=== PATIENT | male | born 1950 | race Caucasian/White ===

== ENCOUNTER 2023-06-22 23:02 | Inpatient (IN) | payer BC, MEDICARE ==
[~2023-06-22] VITALS: Ht 182.9 cm; Wt 105.5 kg
[2023-06-22 23:37] LABS: VENOUS BASE EXCESS -1.8 (-2.0-2.0); VENOUS HCO3 23.1 MMOL/L (23.0-27.0); VENOUS O2 SATURATION 93.1 % (60.0-80.0); VENOUS PARTIAL PRESSURE CO2 40.3 mmHg (38.0-50.0); VENOUS PARTIAL PRESSURE O2 64.4 mmHg (30.0-50.0); VENOUS PH 7.377 UNITS (7.330-7.430); VENOUS STANDARD HCO3 22.8 MMOL/L; VENOUS TOTAL CO2 24.4 MMOL/L (24.0-28.0)
[2023-06-22 23:41] LABS: BASO # 0.1 10^3/uL (0.0-0.2); BASO % 0.3 % (0.0-1.0); EOS # 0.4 10^3/uL (0.0-0.5); EOS % 2.3 % (0.0-3.0); HEMOGLOBIN 15.4 g/dl (13.5-17.5); LYMPH # 1.2 10^3/uL (1.5-5.0); LYMPH % 6.6 % (24.0-44.0); MEAN CORPUSCULAR HEMOGLOBIN 30.6 pg (27.0-33.0); MEAN CORPUSCULAR HGB CONC 32.8 g/dl (32.0-36.5); MEAN CORPUSCULAR VOLUME 93.4 fl (80.0-96.0); MONO % 10.2 % (2.0-8.0); NEUTROPHILS # 14.7 10^3/uL (1.5-8.5); NEUTROPHILS % 79.9 % (36.0-66.0); PLATELET COUNT, AUTOMATED 203 10^3/uL (150-450); RED BLOOD COUNT 5.03 10^6/uL (4.30-6.10); WHITE BLOOD COUNT 18.4 10^3/uL (4.0-10.0)
[2023-06-22 23:58] LABS: BLOOD UREA NITROGEN 12 MG/DL (9-23); CALCIUM LEVEL 8.6 MG/DL (8.3-10.6); CARBON DIOXIDE LEVEL 24 MMOL/L (20-31); CHLORIDE LEVEL 107 MMOL/L (98-107); CREATININE FOR GFR 0.76 MG/DL (0.70-1.30); GLOMERULAR FILTRATION RATE > 60.0 (>42); GLUCOSE, FASTING 108 MG/DL (74-106); POTASSIUM SERUM 4.1 MMOL/L (3.5-5.1); SODIUM LEVEL 140 MMOL/L (136-145)
[2023-06-23 00:19] LABS: MONO # 1.9 10^3/uL (0.0-0.8); RSV AMPLIFICATION NEGATIVE (NEGATIVE)
[2023-06-23] MEDS ORDERED: LORazepam 2 MG TAB PO PRN ×2 (01:10→03:10)
[2023-06-23] MEDS ORDERED: methylPREDNISolone 125MG 2ML VIAL IV ONE (02:00)
[2023-06-23 02:02] LABS: CK-MB VALUE MASS 2.3 NG/ML (<3.6)
[2023-06-23 02:03] LABS: CPK CREATINE PHOSPHOKINASE 155 U/L (46-171); MB/CK RELATIVE INDEX 1.48 (< OR =4)
[2023-06-23] MEDS ORDERED: methylPREDNISolone 125MG 2ML VIAL As Ordered ONE (02:09)
[2023-06-23] MEDS: IPRATROPIUM 0.5MG/ALBUTEROL 2.5MG INH SOL UD 3ML (DUONEB) NEB PRN ×3 (02:20→02:22)
[2023-06-23] MEDS ORDERED: AZITHROMYCIN INJ 500 MG, VIAL MATE ADAPTER 1 EACH in NS 250 ML IV SCH ×2 (02:35→04:00)
[2023-06-23 02:36] LABS: CK-MB VALUE MASS 2.1 NG/ML (<3.6)
[2023-06-23 02:38] LABS: MB/CK RELATIVE INDEX 1.54 (< OR =4)
[2023-06-23] MEDS ORDERED: cefTRIAXone SOD 1 GM in D5W MINI-BAG PLUS 50 ML IV ONE (02:45)
[2023-06-23] MEDS ORDERED: THIAMINE 200MG 2ML VIAL IM ONE (03:10)
[2023-06-23] MEDS ORDERED: ALBUTEROL SULFATE 2.5MG/0.5ML INH NEB SOLN NEB PRN (03:10)
[2023-06-23] MEDS ORDERED: ACETAMINOPHEN TAB 650MG DOSE (2X325MG) PO PRN (03:10)
[2023-06-23] MEDS ORDERED: ONDANSETRON 4MG 2ML VIAL IV PRN (03:10)
[2023-06-23] MEDS ORDERED: SODIUM CHLORIDE 0.9% 1000ML IV SCH (03:10)
[2023-06-23 03:18] LABS: ABG pH (ARTERIAL) 7.408 UNITS (7.350-7.450)
[2023-06-23 03:19] LABS: ABG BASE EXCESS -2.2 (-2.0-2.0); ABG HCO3 21.8 MMOL/L (22.0-26.0); ABG PARTIAL PRESSURE CO2 35.3 mmHg (35.0-45.0); ABG PARTIAL PRESSURE O2 86.5 mmHg (75.0-100.0); ABG STANDARD HCO3 22.7 MMOL/L. (22.0-26.0); ABG TOTAL CO2 22.9 MMOL/L (23.0-31.0)
[2023-06-23] MEDS: NS 1,000 ML IV SCH ×2 (03:52→15:14)
[2023-06-23] MEDS ORDERED: rOPINIRole 0.25 MG TAB(REQUIP) PO ONE (04:05)
[2023-06-23 04:45] VITALS: BP 139/65; TEMP 98.2; O2SAT 92
[2023-06-23] MEDS ORDERED: ZOLP10TA2 PO (05:39)
[2023-06-23] MEDS ORDERED: TRAM50TA2 PO (05:39)
[2023-06-23] MEDS ORDERED: LISI20TA33 PO (05:39)
[2023-06-23] MEDS ORDERED: ALBU8.5H PO (05:39)
[2023-06-23] MEDS ORDERED: TREL1AER PO (05:39)
[2023-06-23] MEDS ORDERED: ATOR40TA75 PO (05:39)
[2023-06-23] MEDS ORDERED: HOME MED LIST COMPLETE! XX SCH (05:40)
[2023-06-23] MEDS: HEPARIN SOD (PORCINE) 5000UNITS/ML 1ML VIAL/SYRINGE SC SCH ×3 (05:53→22:07)
[2023-06-23 07:07] LABS: BLOOD UREA NITROGEN 10 MG/DL (9-23); CARBON DIOXIDE LEVEL 22 MMOL/L (20-31); CHLORIDE LEVEL 108 MMOL/L (98-107); CREATININE FOR GFR 0.66 MG/DL (0.70-1.30); GLOMERULAR FILTRATION RATE > 60.0 (>42); GLUCOSE, FASTING 195 MG/DL (74-106); MAGNESIUM LEVEL 1.6 MG/DL (1.8-2.4); POTASSIUM SERUM 3.7 MMOL/L (3.5-5.1); SODIUM LEVEL 141 MMOL/L (136-145)
[2023-06-23 07:24] VITALS: BP 150/71; TEMP 97.2; O2SAT 96
[2023-06-23] MEDS: IPRATROPIUM 0.5MG/ALBUTEROL 2.5MG INH SOL UD 3ML (DUONEB) NEB SCH ×3 (07:59→19:37)
[2023-06-23] MEDS ORDERED: MULTIVITAMINS/MINERALS THERAP 1 TAB PO SCH (09:00)
[2023-06-23] MEDS: MIRALAX *UNIT DOSE* 17GM PACKET PO SCH (09:00)
[2023-06-23] MEDS ORDERED: FOLIC ACID 1MG TAB PO SCH (09:00)
[2023-06-23] MEDS ORDERED: THIAMINE 100 MG TAB PO SCH (09:00)
[2023-06-23] MEDS: SENOKOT S TAB PO SCH ×2 (09:00→20:14)
[2023-06-23 09:02] LABS: PROCALCITONIN 0.09 ng/ml
[2023-06-23] MEDS: methylPREDNISolone 40MG 1ML VIAL IV SCH ×3 (09:31→20:14)
[2023-06-23 11:59] LABS: BASO % 0.2 % (0.0-1.0); HEMATOCRIT 45.2 % (42.0-52.0); HEMOGLOBIN 14.7 g/dl (13.5-17.5); LYMPH # 0.5 10^3/uL (1.5-5.0); LYMPH % 2.8 % (24.0-44.0); MEAN CORPUSCULAR HEMOGLOBIN 30.5 pg (27.0-33.0); MEAN CORPUSCULAR HGB CONC 32.5 g/dl (32.0-36.5); MEAN CORPUSCULAR VOLUME 93.8 fl (80.0-96.0); MONO # 0.2 10^3/uL (0.0-0.8); MONO % 1.3 % (2.0-8.0); NEUTROPHILS # 15.9 10^3/uL (1.5-8.5); NEUTROPHILS % 94.9 % (36.0-66.0); PLATELET COUNT, AUTOMATED 178 10^3/uL (150-450); RED BLOOD COUNT 4.82 10^6/uL (4.30-6.10); WHITE BLOOD COUNT 16.7 10^3/uL (4.0-10.0)
[2023-06-23 15:51] VITALS: BP 154/72; TEMP 97.1; O2SAT 96
[2023-06-23 20:00] VITALS: BP 160/58; TEMP 98; O2SAT 96
[2023-06-23] MEDS: MAGNESIUM OXIDE 400MG TAB (MAG-OX) PO SCH (22:08)
[2023-06-23] MEDS ORDERED: NICOTINE 21MG/24HR 1 EA TRANSDERMAL TD PRN (23:10)
[2023-06-23 23:52] VITALS: BP 121/54; TEMP 97.8; O2SAT 96
[2023-06-24] VITALS (10 sets, daily range): BP systolic 129–166; BP diastolic 60–72; TEMP 97.5–98.8; O2SAT 92–99
[2023-06-24] MEDS: IPRATROPIUM 0.5MG/ALBUTEROL 2.5MG INH SOL UD 3ML (DUONEB) NEB SCH ×6 (01:02→23:11)
[2023-06-24] MEDS: methylPREDNISolone 40MG 1ML VIAL IV SCH ×3 (01:44→20:17)
[2023-06-24] MEDS: NS 1,000 ML IV SCH (01:45)
[2023-06-24] MEDS: cefTRIAXone SOD 1 GM in D5W MINI-BAG PLUS 50 ML IV SCH (03:13)
[2023-06-24] MEDS: HEPARIN SOD (PORCINE) 5000UNITS/ML 1ML VIAL/SYRINGE SC SCH ×3 (05:04→21:19)
[2023-06-24] MEDS: AZITHROMYCIN 250MG TABLET PO SCH (05:04)
[2023-06-24 05:20] LABS: BASO % 0.1 % (0.0-1.0); HEMATOCRIT 44.1 % (42.0-52.0); HEMOGLOBIN 13.9 g/dl (13.5-17.5); LYMPH # 0.9 10^3/uL (1.5-5.0); LYMPH % 4.8 % (24.0-44.0); MEAN CORPUSCULAR HEMOGLOBIN 30.2 pg (27.0-33.0); MEAN CORPUSCULAR HGB CONC 31.5 g/dl (32.0-36.5); MEAN CORPUSCULAR VOLUME 95.7 fl (80.0-96.0); MONO # 0.8 10^3/uL (0.0-0.8); MONO % 4.3 % (2.0-8.0); NEUTROPHILS # 16.3 10^3/uL (1.5-8.5); NEUTROPHILS % 89.8 % (36.0-66.0); PLATELET COUNT, AUTOMATED 195 10^3/uL (150-450); RED BLOOD COUNT 4.61 10^6/uL (4.30-6.10); WHITE BLOOD COUNT 18.2 10^3/uL (4.0-10.0)
[2023-06-24 05:54] LABS: BLOOD UREA NITROGEN 16 MG/DL (9-23); CALCIUM LEVEL 8.6 MG/DL (8.3-10.6); CARBON DIOXIDE LEVEL 24 MMOL/L (20-31); CHLORIDE LEVEL 107 MMOL/L (98-107); CREATININE FOR GFR 0.61 MG/DL (0.70-1.30); GLOMERULAR FILTRATION RATE > 60.0 (>42); GLUCOSE, FASTING 174 MG/DL (74-106); MAGNESIUM LEVEL 1.9 MG/DL (1.8-2.4); POTASSIUM SERUM 4.4 MMOL/L (3.5-5.1); SODIUM LEVEL 142 MMOL/L (136-145)
[2023-06-24] MEDS: MIRALAX *UNIT DOSE* 17GM PACKET PO SCH (08:19)
[2023-06-24] MEDS: MAGNESIUM OXIDE 400MG TAB (MAG-OX) PO SCH ×2 (08:20→20:23)
[2023-06-24] MEDS: SENOKOT S TAB PO SCH ×2 (08:20→20:19)
[2023-06-24] MEDS ORDERED: ISOVUE-370 76% 100ML VIAL As Ordered ONE (09:28)
[2023-06-24] MEDS: ATORVASTATIN 20 MG TAB PO SCH (10:36)
[2023-06-24] MEDS: traMADol 50 MG TAB PO SCH ×2 (11:37→20:19)
[2023-06-24] MEDS: TIOTROPIUM INHALER/CAPSULE (SPIRIVA) INH SCH (11:46)
[2023-06-24] MEDS: SYMBICORT 160/4.5MCG INHALER 6GM INH SCH ×2 (11:47→19:27)
[2023-06-24] MEDS: rOPINIRole 0.25 MG TAB(REQUIP) PO SCH (20:19)
[2023-06-24] MEDS: zolPIDEM TARTRATE 5 MG TAB PO SCH (20:19)
[2023-06-25] VITALS (34 sets, daily range): BP systolic 122–153; BP diastolic 65–86; TEMP 97.4–98.7; O2SAT 87–97
[2023-06-25] MEDS: IPRATROPIUM 0.5MG/ALBUTEROL 2.5MG INH SOL UD 3ML (DUONEB) NEB SCH ×5 (03:14→19:40)
[2023-06-25] MEDS: cefTRIAXone SOD 1 GM in D5W MINI-BAG PLUS 50 ML IV SCH (03:16)
[2023-06-25] MEDS: HEPARIN SOD (PORCINE) 5000UNITS/ML 1ML VIAL/SYRINGE SC SCH ×3 (05:01→21:15)
[2023-06-25] MEDS: AZITHROMYCIN 250MG TABLET PO SCH (05:01)
[2023-06-25 06:02] LABS: HEMATOCRIT 43.5 % (42.0-52.0); HEMOGLOBIN 13.7 g/dl (13.5-17.5); MEAN CORPUSCULAR HEMOGLOBIN 29.8 pg (27.0-33.0); MEAN CORPUSCULAR HGB CONC 31.5 g/dl (32.0-36.5); MEAN CORPUSCULAR VOLUME 94.8 fl (80.0-96.0); PLATELET COUNT, AUTOMATED 213 10^3/uL (150-450); RED BLOOD COUNT 4.59 10^6/uL (4.30-6.10); WHITE BLOOD COUNT 18.8 10^3/uL (4.0-10.0)
[2023-06-25 06:28] LABS: BLOOD UREA NITROGEN 19 MG/DL (9-23); CALCIUM LEVEL 8.9 MG/DL (8.3-10.6); CARBON DIOXIDE LEVEL 25 MMOL/L (20-31); CHLORIDE LEVEL 107 MMOL/L (98-107); CREATININE FOR GFR 0.63 MG/DL (0.70-1.30); GLOMERULAR FILTRATION RATE > 60.0 (>42); GLUCOSE, FASTING 202 MG/DL (74-106); MAGNESIUM LEVEL 1.8 MG/DL (1.8-2.4); POTASSIUM SERUM 4.3 MMOL/L (3.5-5.1); SODIUM LEVEL 140 MMOL/L (136-145)
[2023-06-25] MEDS: TIOTROPIUM INHALER/CAPSULE (SPIRIVA) INH SCH (06:55)
[2023-06-25] MEDS: SYMBICORT 160/4.5MCG INHALER 6GM INH SCH ×2 (06:55→19:41)
[2023-06-25 07:43] LABS: PROCALCITONIN 0.06 ng/ml
[2023-06-25] MEDS: methylPREDNISolone 40MG 1ML VIAL IV SCH (09:19)
[2023-06-25] MEDS: ATORVASTATIN 20 MG TAB PO SCH (09:21)
[2023-06-25] MEDS: MAGNESIUM OXIDE 400MG TAB (MAG-OX) PO SCH ×2 (09:21→21:15)
[2023-06-25] MEDS: traMADol 50 MG TAB PO SCH ×2 (09:21→21:15)
[2023-06-25] MEDS: SENOKOT S TAB PO SCH ×2 (09:21→21:14)
[2023-06-25] MEDS: MIRALAX *UNIT DOSE* 17GM PACKET PO SCH (09:22)
[2023-06-25] MEDS: guaiFENesin ER 600 MG TAB PO SCH ×2 (14:38→21:14)
[2023-06-25] MEDS: rOPINIRole 0.25 MG TAB(REQUIP) PO SCH (21:14)
[2023-06-25] MEDS: zolPIDEM TARTRATE 5 MG TAB PO SCH (21:14)
[2023-06-26] VITALS (11 sets, daily range): BP systolic 137–142; BP diastolic 63–73; TEMP 97.7–98; O2SAT 91–94
[2023-06-26] MEDS: IPRATROPIUM 0.5MG/ALBUTEROL 2.5MG INH SOL UD 3ML (DUONEB) NEB SCH ×3 (00:15→11:21)
[2023-06-26] MEDS: cefTRIAXone SOD 1 GM in D5W MINI-BAG PLUS 50 ML IV SCH (03:30)
[2023-06-26 06:05] LABS: HEMATOCRIT 42.2 % (42.0-52.0); HEMOGLOBIN 13.5 g/dl (13.5-17.5); MEAN CORPUSCULAR HEMOGLOBIN 30.1 pg (27.0-33.0); PLATELET COUNT, AUTOMATED 199 10^3/uL (150-450); RED BLOOD COUNT 4.49 10^6/uL (4.30-6.10); WHITE BLOOD COUNT 12.9 10^3/uL (4.0-10.0)
[2023-06-26] MEDS: HEPARIN SOD (PORCINE) 5000UNITS/ML 1ML VIAL/SYRINGE SC SCH (06:07)
[2023-06-26 06:41] LABS: BLOOD UREA NITROGEN 14 MG/DL (9-23); CALCIUM LEVEL 8.4 MG/DL (8.3-10.6); CARBON DIOXIDE LEVEL 28 MMOL/L (20-31); CHLORIDE LEVEL 103 MMOL/L (98-107); GLOMERULAR FILTRATION RATE > 60.0 (>42); GLUCOSE, FASTING 90 MG/DL (74-106); MAGNESIUM LEVEL 1.8 MG/DL (1.8-2.4); POTASSIUM SERUM 3.7 MMOL/L (3.5-5.1); SODIUM LEVEL 138 MMOL/L (136-145)
[2023-06-26] MEDS: SYMBICORT 160/4.5MCG INHALER 6GM INH SCH (07:05)
[2023-06-26] MEDS: TIOTROPIUM INHALER/CAPSULE (SPIRIVA) INH SCH (07:05)
[2023-06-26] MEDS: ATORVASTATIN 20 MG TAB PO SCH (08:39)
[2023-06-26] MEDS: SENOKOT S TAB PO SCH (08:39)
[2023-06-26] MEDS: guaiFENesin ER 600 MG TAB PO SCH (08:39)
[2023-06-26] MEDS: MAGNESIUM OXIDE 400MG TAB (MAG-OX) PO SCH (08:40)
[2023-06-26] MEDS: traMADol 50 MG TAB PO SCH (08:41)
[2023-06-26] MEDS: MIRALAX *UNIT DOSE* 17GM PACKET PO SCH (08:41)
[2023-06-26] MEDS ORDERED: predniSONE 20 MG TAB PO SCH (09:00)
[2023-06-26] MEDS ORDERED: ALB2.5NEB NEB ×2 (11:17→11:26)
[2023-06-26] MEDS ORDERED: MAGN400T2 PO (11:17)
[2023-06-26] MEDS ORDERED: PRED10TA2 PO (11:17)
[2023-06-26] MEDS ORDERED: AMOX875T2 PO ×2 (11:18→11:26)
[2023-06-26] MEDS ORDERED: MUCI600T31 PO (11:45)
[2023-06-26 16:08] LABS: BODY FLUID CULTURE Not indicated. (.); LEGIONELLA ANTIGEN URINE Negative (Negative); ORGANISM ID Not indicated. (.); SPECIMEN SOURCE Urine (.); URINE STREP PNEUMONIAE ANTIGEN Negative (Negative)
== END 2023-06-26 13:30 | disposition home or self-care (01) | DRG 193 ==
LOC: M ED 23:02 → EDBD 23:02 → M ED INP 06-23 03:06 → M PCU 06-23 04:42
PROVIDERS: ADMIT Internal Medicine; ATTEND Internal Medicine
DX: J18.9 Pneumonia, unspecified organism (principal); J96.01 Acute respiratory failure with hypoxia; J44.1 Chronic obstructive pulmonary disease with (acute) exacerbation; J44.0 Chronic obstructive pulmonary disease with (acute) lower respiratory infection; I73.9 Peripheral vascular disease, unspecified; I10 Essential (primary) hypertension; G25.81 Restless legs syndrome; E78.5 Hyperlipidemia, unspecified; K42.9 Umbilical hernia without obstruction or gangrene; R51.9 Headache, unspecified; F17.210 Nicotine dependence, cigarettes, uncomplicated; E83.42 Hypomagnesemia; F10.20 Alcohol dependence, uncomplicated; I25.10 Atherosclerotic heart disease of native coronary artery without angina pectoris; R91.1 Solitary pulmonary nodule; Z85.118 Personal history of other malignant neoplasm of bronchus and lung; Z79.899 Other long term (current) drug therapy; G47.00 Insomnia, unspecified